=== PATIENT | male | born 1945 | race Caucasian/White ===

== ENCOUNTER 2024-06-06 23:41 | Emergency (ER) | payer OTHER ==
[2024-06-06 23:50] VITALS: BP 145/82; PULSE 72; RESP 16; TEMP 98.5; BMI 29.0
[2024-06-07] MEDS: SODIUM CHLORIDE 1,000 ML IV STA (00:59)
[2024-06-07 01:02] LABS: BASO % 0.6 % (0-2.0)
[2024-06-07 01:04] LABS: VENOUS BASE EXCESS 2.6 mmol/L (-2-2); VENOUS O2 SATURATION 29.9 % (70-80); VENOUS PH 7.346 (7.310-7.410)
[2024-06-07 01:21] LABS: POTASSIUM 4.6 mmol/L (3.5-5.1)
[2024-06-07 01:23] LABS: BLOOD UREA NITROGEN 18.7 mg/dL (7-18); CALCIUM 9.6 mg/dL (8.5-10.1)
[2024-06-07 01:24] LABS: ALBUMIN 3.4 g/dl (3.4-5.0)
[2024-06-07 01:25] LABS: EOS % 2.7 % (0-4.5); HEMATOCRIT 38.9 % (35.4-49); HEMOGLOBIN 12.9 GM/dL (11.7-16.9); MCH 30.6 pg (25.7-33.7); MCHC 33.1 g/dl (32.0-35.9); MEAN CELL VOLUME 92.6 fl (80-96); MEAN PLT VOLUME 7.3 fl (7.5-11.1); MONO % 12.4 % (3.8-10.2); NEUT % 59.3 % (42.8-82.8); PLATELET COUNT 286 10^3/uL (134-434); WHITE BLOOD COUNT 8.1 K/mm3 (4.0-10.0)
[2024-06-07 01:27] LABS: CREATININE 1.2 mg/dL (0.55-1.3)
[2024-06-07 01:28] LABS: BILIRUBIN,TOTAL 0.2 mg/dL (0.2-1); TOT PROT 7.1 g/dl (6.4-8.2)
[2024-06-07 02:19] LABS: PH,URINE 7.5 (5.0-8.0); URINE APPEARANCE CLEAR; URINE BILIRUBIN NEGATIVE (NEGATIVE); URINE COLOR YELLOW; URINE GLUCOSE (UA) 3+ (NEGATIVE); URINE KETONE NEGATIVE (NEGATIVE); URINE LEUK ESTERASE NEGATIVE (NEGATIVE); URINE NITRITE NEGATIVE (NEGATIVE); URINE PROTEIN NEGATIVE (NEGATIVE); URINE UROBILINOGEN 0.2 mg/dL (0.2-1.0)
== END 2024-06-07 04:16 | disposition home or self-care (01) ==
LOC: JER 23:41
PROC: 3E0337Z Introduction of Electrolytic and Water Balance Substance into Peripheral Vein, Percutaneous Approach (ICD-10-PCS; principal; 2024-06-07)
DX: E11.65 Type 2 diabetes mellitus with hyperglycemia (principal); Z20.822 Contact with and (suspected) exposure to COVID-19
CPT/HCPCS: 0241U-QW; 36415; 80053; 81003; 82010; 82803; 82962; 85025; 87086; 96360; 99284-25

== ENCOUNTER 2024-10-13 12:12 | Observation (INO) | payer OTHER ==
[2024-10-13 12:26] VITALS: BMI 32.2
[2024-10-13] MEDS ORDERED: ACETAMINOPHEN 325 MG TABLET (FP) ONE (13:52)
[2024-10-13] MEDS: ACETAMINOPHEN 325 MG TABLET (FP) PO ONE (14:10)
[2024-10-13 15:55] LABS: HEMATOCRIT 39.6 % (40.1-51.0); HEMOGLOBIN 13.1 g/dL (13.7-17.5); MCHC 33.1 g/dl (32.3-36.5); MEAN PLT VOLUME 9.4 fl (9.4-12.4); PLATELET COUNT 274 x10^3/uL (163-337); RDW 12.6 % (12.2-16.6)
[2024-10-13 15:56] LABS: VENOUS BASE EXCESS 3.4 mmol/L (-2-2); VENOUS O2 SATURATION 34.4 % (70-80); VENOUS PCO2 57.6 mmHg (38-52); VENOUS PH 7.342 (7.310-7.410)
[2024-10-13 16:03] LABS: PROTHROMBIN TIME (PATIENT) 10.9 SEC (9.7-13.0)
[2024-10-13 16:06] LABS: ACTIVATED PTT 28.2 SECONDS (25.2-36.5)
[2024-10-13 16:22] LABS: ALBUMIN 3.8 g/dl (3.4-5.0); CALCIUM 10.6 mg/dL (8.5-10.1); MAGNESIUM 2.6 mg/dL (1.8-2.4)
[2024-10-13 16:25] LABS: CREATININE 1.1 mg/dL (0.55-1.3)
[2024-10-13 16:26] LABS: BILIRUBIN,TOTAL 0.3 mg/dL (0.2-1); TOT PROT 7.8 g/dl (6.4-8.2)
[2024-10-13] MEDS: SODIUM CHLORIDE 500 ML IV STA (19:24)
[2024-10-13] MEDS ORDERED: GABAPENTIN 400 MG CAPSULE ONE (23:52)
[2024-10-13] MEDS ORDERED: traZODone HCL 50 MG TABLET (FP) ONE (23:52)
[2024-10-13] MEDS ORDERED: INSULIN GLARGINE (LANTUS) 100 UNITS/ML UNITS SQ ONE (23:53)
[2024-10-13] MEDS: traZODone HCL 50 MG TABLET (FP) PO SCH (23:59)
[2024-10-13] MEDS: INSULIN GLARGINE (LANTUS) 100 UNITS/ML UNITS SQ SCH (23:59)
[2024-10-13] MEDS: GABAPENTIN 400 MG CAPSULE PO SCH (23:59)
[2024-10-14] MEDS ORDERED: ACETAMINOPHEN 325 MG TABLET (FP) PO PRN ×2 (02:30)
[2024-10-14] MEDS ORDERED: oxyCODONE HCL 5 MG TABLET PO PRN (02:30)
[2024-10-14] MEDS: oxyCODONE HCL 5 MG TABLET PO PRN (02:30)
[2024-10-14] MEDS: ACETAMINOPHEN 325 MG TABLET (FP) PO SCH (04:39)
[2024-10-14 06:06] VITALS: RESP 18
[2024-10-14] MEDS: INSULIN ASPART SLIDING SCALE (NOVOLOG) 1 VIAL SQ SCH (06:10)
[2024-10-14 09:27] LABS: HEMATOCRIT 43.3 % (40.1-51.0); MCHC 32.3 g/dl (32.3-36.5); MEAN CELL VOLUME 94.1 fl (79.0-92.2); MEAN PLT VOLUME 9.6 fl (9.4-12.4); PLATELET COUNT 285 x10^3/uL (163-337); RDW 12.6 % (12.2-16.6)
[2024-10-14 09:55] LABS: POTASSIUM 5.1 mmol/L (3.5-5.1)
[2024-10-14 10:13] LABS: ALBUMIN 3.5 g/dl (3.4-5.0); MAGNESIUM 2.2 mg/dL (1.8-2.4)
[2024-10-14 10:15] LABS: CREATININE 1.1 mg/dL (0.55-1.3); TOT PROT 7.5 g/dl (6.4-8.2)
[2024-10-14 10:18] LABS: CALCIUM 10.3 mg/dL (8.5-10.1)
[2024-10-14 10:19] LABS: BLOOD UREA NITROGEN 16.8 mg/dL (7-18)
[2024-10-14 10:20] LABS: PHOSPHOROUS 3.9 mg/dL (2.5-4.9)
[2024-10-14 10:25] LABS: BILIRUBIN,TOTAL 0.6 mg/dL (0.2-1)
[2024-10-14] MEDS: ENOXAPARIN NA (PORCINE) 40 MG/0.4 ML DISP.SYRIN SQ SCH (10:50)
[2024-10-14] MEDS: CILOSTAZOL 100 MG TABLET PO SCH (19:39)
[2024-10-14] MEDS ORDERED: CILOSTAZOL 100 MG TABLET PO SCH (22:00)
[2024-10-15] MEDS ORDERED: ACETAMINOPHEN 325 MG TABLET (FP) PO PRN (07:24)
[2024-10-15] MEDS ORDERED: oxyCODONE HCL 5 MG TABLET PO PRN (07:24)
[2024-10-15 08:43] VITALS: BP 128/80; PULSE 87; TEMP 98.1
[2024-10-15 09:06] LABS: HEMATOCRIT 41.9 % (40.1-51.0); HEMOGLOBIN 13.7 g/dL (13.7-17.5); MCHC 32.7 g/dl (32.3-36.5); MEAN CELL VOLUME 92.3 fl (79.0-92.2); MEAN PLT VOLUME 9.7 fl (9.4-12.4); PLATELET COUNT 266 x10^3/uL (163-337); RDW 12.2 % (12.2-16.6)
[2024-10-15 09:23] LABS: POTASSIUM 4.4 mmol/L (3.5-5.1)
[2024-10-15 09:29] LABS: ALBUMIN 3.6 g/dl (3.4-5.0); BLOOD UREA NITROGEN 16.4 mg/dL (7-18); CALCIUM 10.2 mg/dL (8.5-10.1); MAGNESIUM 2.4 mg/dL (1.8-2.4)
[2024-10-15 09:32] LABS: PHOSPHOROUS 4.1 mg/dL (2.5-4.9)
[2024-10-15 09:33] LABS: BILIRUBIN,TOTAL 0.4 mg/dL (0.2-1); TOT PROT 7.6 g/dl (6.4-8.2)
[2024-10-15 09:34] LABS: CREATININE 0.9 mg/dL (0.55-1.3)
[2024-10-15] MEDS ORDERED: ENOXAPARIN NA (PORCINE) 30 MG/0.3 ML DISP.SYRIN SQ SCH ×2 (10:01→10:46)
[2024-10-15] MEDS: ENOXAPARIN NA (PORCINE) 40 MG/0.4 ML DISP.SYRIN SQ SCH ×2 (10:52)
[2024-10-15] MEDS: ENOXAPARIN NA (PORCINE) 30 MG/0.3 ML DISP.SYRIN SQ SCH (10:52)
== END 2024-10-15 12:51 | disposition home or self-care (01) ==
LOC: JER 12:12 → JERBED 20:12 → INTOOBSV 20:12 → J5S 10-14 01:21
PROVIDERS: ADMIT Student in an Organized Health Care Education/Training Program; ATTEND Internal Medicine
PROC: 3E023GC Introduction of Other Therapeutic Substance into Muscle, Percutaneous Approach (ICD-10-PCS; principal; 2024-10-13)
PROC: 3E013VG Introduction of Insulin into Subcutaneous Tissue, Percutaneous Approach (ICD-10-PCS; 2024-10-13)
PROC: 3E0337Z Introduction of Electrolytic and Water Balance Substance into Peripheral Vein, Percutaneous Approach (ICD-10-PCS; 2024-10-13)
DX: M79.651 Pain in right thigh (principal); G89.29 Other chronic pain; E11.65 Type 2 diabetes mellitus with hyperglycemia; R42 Dizziness and giddiness; Z98.890 Other specified postprocedural states
CPT/HCPCS: 36415; 71046-TC-FY; 73502-TC-RT-FY; 73552-TC-RT-FY; 73560-TC-RT-FY; 75635-TC; 80053; 80061; 82010; 82550; 82803; 82962; 83036; 83735; 84100; 84484; 85027; 85610; 85730; 93005; 93010; 93971-TC; 97116-GP; 97161-GP; 99285-25; G0378; Q9967

== ENCOUNTER 2025-03-01 12:16 | Emergency (ER) | payer OTHER ==
[2025-03-01 12:25] VITALS: BP 127/68; PULSE 102; RESP 20; TEMP 98.2; BMI 25.8
== END 2025-03-01 13:45 | disposition left against medical advice (07) ==
LOC: JER 12:16
DX: G47.00 Insomnia, unspecified (principal)
CPT/HCPCS: 99283-25